=== PATIENT | male | born 1985 | race Caucasian/White ===

== ENCOUNTER 2022-06-04 11:12 | Emergency (ER) | payer OTHER ==
[2022-06-04 11:19] VITALS: BP 119/79; PULSE 61; RESP 18; TEMP 98.2; BMI 23.0
[2022-06-04] MEDS ORDERED: IBUPROFEN 600 MG TABLET (FP) PO ONE ×2 (12:49→13:15)
== END 2022-06-04 13:57 | disposition home or self-care (01) ==
LOC: JERFT 11:12
PROC: 2W3DX1Z Immobilization of Left Lower Arm using Splint (ICD-10-PCS; principal; 2022-06-04)
DX: S62.339A Displaced fracture of neck of unspecified metacarpal bone, initial encounter for closed fracture (principal); S62.345A Nondisplaced fracture of base of fourth metacarpal bone, left hand, initial encounter for closed fracture; W20.8XXA Other cause of strike by thrown, projected or falling object, initial encounter
CPT/HCPCS: 73130-TC-LT-FY; 99283-25

== ENCOUNTER 2022-08-11 18:52 | Emergency (ER) | payer OTHER ==
[2022-08-11 20:23] VITALS: BP 120/87; PULSE 73; RESP 18; TEMP 98.5; BMI 25.1
[2022-08-11] MEDS ORDERED: ACETAMINOPHEN 325 MG TABLET (FP) PO ONE (21:17)
[2022-08-11] MEDS ORDERED: ACETAMINOPHEN 325 MG TABLET (FP) ONE (21:45)
== END 2022-08-11 23:02 | disposition home or self-care (01) ==
LOC: JER 18:52 → JERFT 18:52
DX: S06.0X0A Concussion without loss of consciousness, initial encounter (principal); M25.512 Pain in left shoulder; V49.40XA Driver injured in collision with unspecified motor vehicles in traffic accident, initial encounter
CPT/HCPCS: 70450-TC; 72125-TC; 73030-TC-LT-FY; 99284-25